=== PATIENT | male | born 1980 | race Caucasian/White ===

== ENCOUNTER 2020-12-04 17:21 | Emergency (ER) | payer OTHER ==
[~2020-12-04] VITALS: Ht 185.4 cm; Wt 90.7 kg
[2020-12-04 17:58] LABS: ABSOLUTE LYMPHOCYTES 1.1 thou/uL (0.8-5.3); ABSOLUTE MONOCYTES 0.8 thou/uL (0.0-1.2); ABSOLUTE NEUTROPHILS 4.5 thou/uL (1.6-8.1); BASOPHILS 0.7 %; EOSINOPHILS 0.4 %; HEMATOCRIT 39.8 % (42.0-52.0); HEMOGLOBIN 13.8 gm/dL (14.0-18.0); LYMPHOCYTES 16.4 %; MCH 32.6 pg (26.0-34.0); MCHC 34.6 g/dL (28.0-37.0); MCV 94.1 fL (80.0-100.0); MONOCYTES 12.7 %; MPV 7.1 fl. (7.2-11.1); NUCLEATED RBCS 0 /100WBC; PLATELET COUNT* 220 thou/uL (150-400); POLYS 69.8 %; RBC 4.23 mil/uL (4.50-6.00); RDW-CV 13.4 % (10.5-14.5); WBC 6.5 thou/uL (4.0-11.0)
[2020-12-04 18:15] LABS: CALCIUM 7.9 mg/dL (8.5-10.1); POTASSIUM 3.4 mmol/L (3.5-5.1)
[2020-12-04 18:20] LABS: ALBUMIN 3.6 g/dL (3.4-5.0); TOTAL BILIRUBIN 0.4 mg/dL (<0.1-1.0); TOTAL PROTEIN 6.9 g/dL (6.4-8.2)
[2020-12-04 19:09] VITALS: BP 129/87
--- NOTE | 2020-12-05 09:47 | EKG ---
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
== END 2020-12-04 19:11 | disposition home or self-care (01) ==
LOC: M.ERS 17:21
PROVIDERS: Family Medicine
DX: R51.9 Headache, unspecified (principal); R53.1 Weakness; R20.2 Paresthesia of skin; Z86.73 Personal history of transient ischemic attack (TIA), and cerebral infarction without residual deficits